=== PATIENT | female | born 1980 | race Caucasian/White ===

== ENCOUNTER 2017-05-08 18:45 | Emergency (ER) | payer OTHER ==
[~2017-05-08] VITALS: Ht 154.9 cm; Wt 54.4 kg
[~2017-05-08 18:45] MED LIST: CETI10CA PO; DCS100C PO; DOCU100C37 PO; HYDR-3720 PO; IBP800T PO; IBUP-1780 PO; LEVO88TA54 PO; OXYC-465 PO; PREN1TAB71 PO
--- OUTSIDE RECORDS SUMMARY | 2017-05-08 18:50 | XMS REPORT | Continuity of Care Document ---
Author Author [facility] Organization [facility] Address Unknown Phone Unavailable Allergies Active Description Code Type Severity Reaction Onset Reported/Identified Relationship to Patient Clinical Status Yes No Known Drug Allergies [id number] Drug Allergy Unknown N/ A 07/11/2013 Yes Sulfa (Sulfonamide Antibiotics) [id number] Drug Allergy Mild N/A 09/24/2015 Medications Problems Date Dx Coded Attending Type Code Diagnosis Diagnosed By 09/27/2015 Ot O99.810 09/27/2015 Ot Z3A.00 09/27/2015 NERY MITTAL, JEFF Adair Ot D69.6 THROMBOCYTOPENIA, UNSPECIFIED 09/27/2015 JEFF GABRIEL MD Ot O60.14X0 LABOR THIRD TRI W DELIVE 09/27/2015 JEFF GABRIEL MD, Ot O70.1 SECOND DEGREE PERINEAL LACERATION DURING 09/27/2015 JEFF GABRIEL MD, Ot O99.113 OT DIS OF BLD/BLD-FORM ORG/IMMUN MECHNS 09/27/2015 JEFF GABRIEL MD, Ot Z23 ENCOUNTER FOR IMMUNIZATION 09/27/2015 JEFF GABRIEL MD, Ot Z37.0 SINGLE LIVE 09/27/2015 JEFF GABRIEL MD, Ot Z3A.35 35 WEEKS GESTATION OF 09/28/2015 JEFF GABRIEL MD, Ot D69.6 09/28/2015 JEFF GABRIEL MD, Ot O60.14X0 09/28/2015 JEFF GABRIEL MD, Ot O70.1 09/28/2015 JEFF GABRIEL MD, Ot O99.113 09/28/2015 JEFF GBARIEL MD Ot Z23 09/28/2015 JEFF GABRIEL MD, Ot Z37.0 09/28/2015 NERY MITTAL, JEFF Adair Ot Z3A.35 09/28/2015 NERY MITTAL, JEFF Adair Ot D69.6 09/28/2015 NERY MITTAL, JEFF Adair Ot O60.14X0 09/28/2015 NERY MITTAL, JEFF Adair Ot O70.1 09/28/2015 NERY MITTAL, JEFF Adair Ot O99.113 09/28/2015 NERY MITTAL, JEFF Adair Ot Z23 09/28/2015 NERY MITTAL, JEFF Adair Ot Z37.0 09/28/2015 NERY MITTAL, JEFF Adair Ot Z3A.35 09/28/2015 NERY MITTAL, JEFF Adair Ot D69.6 09/28/2015 NERY MITTAL, JEFF Adair Ot O60.14X0 09/28/2015 NERY MITTAL, JEFF Adair Ot O70.1 09/28/2015 NERY MITTAL, JEFF Adair Ot O99.113 09/28/2015 NERY MITTAL, JEFF Adair Ot Z23 09/28/2015 NREY MITTAL, JEFF Adair Ot Z37.0 09/28/2015 NERY MITTAL, JEFF Adair Ot Z3A.35 10/03/2015 Ot O99.810 10/03/2015 Ot Z3A.00 08/09/2016 Ot O99.810 ABNORMAL GLUCOSE COMPLICATING 08/09/2016 Ot Z3A.00 WEEKS OF GESTATION OF NOT SPEC 08/09/2016 Ot O99.810 ABNORMAL GLUCOSE COMPLICATING 08/09/2016 Ot Z3A.00 WEEKS OF GESTATION OF NOT SPEC Procedures Code Description Performed By Performed On [id number] REPAIR PERINEUM MUSCLE, OPEN APPROACH 09/25/2015 [id number] DELIVERY OF PRODUCTS OF CONCEPTION, EXTE 09/25/2015 Results Encounters ACCT No. Visit Date/Time Discharge Status Pt. Type Provider Facility Loc./Unit Complaint [id number] 09/25/2015 07:54:00 2015 14:30:00 DIS Inpatient NERY MITTAL, JEFF Adair [facility] LDRP CONTRACTIONS, [id number] 07/11/2013 15:06:00 2013 11:25:00 DIS Inpatient [id number] 05/08/2017 18:46:00 ACT Emergency NA BALLARD DO [facility] [id number] 09/25/2015 10:22:00 Document Registration
[2017-05-08 19:40] LABS: BASOPHILS % (AUTO) 0 % (0-10); EOSINOPHILS # (AUTO) 0.1 10^3/uL (0.0-0.3); EOSINOPHILS % (AUTO) 1 % (0-10); LYMPHOCYTES # (AUTO) 1.2 X 10^3 (1.0-4.0); LYMPHOCYTES % (AUTO) 23 % (12-44); MEAN CORPUSCULAR HEMOGLOBIN 31 PG (25-34); MEAN CORPUSCULAR HGB CONC 36 G/DL (32-36); MEAN CORPUSCULAR VOLUME 87 FL (80-99); MEAN PLATELET VOLUME 11.2 FL (7.4-10.4); MONOCYTES # (AUTO) 0.3 X 10^3 (0.0-1.0); MONOCYTES % (AUTO) 6 % (0-12); NEUTROPHILS # (AUTO) 3.5 X 10^3 (1.8-7.8); NEUTROPHILS % (AUTO) 69 % (42-75); PLATELET COUNT 117 10^3/uL (130-400); RED BLOOD COUNT 4.54 10^6/uL (4.35-5.85); RED CELL DISTRIBUTION WIDTH 13.1 % (10.0-14.5); WHITE BLOOD COUNT 5.1 10^3/uL (4.3-11.0)
[2017-05-08 19:51] LABS: INR 1.1 (0.8-1.4)
--- NOTE | 2017-05-08 19:59 | Diagnostic Imaging Report ---
EXAM: CHEST PA/LAT (2 VIEW) INDICATION: Chest pain. COMPARISON: None. FINDINGS: Normal heart size and pulmonary vascularity. No focal pulmonary opacity, pleural effusion or pneumothorax. Osseous structures are unremarkable. Surgical clips in the upper abdomen. IMPRESSION: No acute cardiopulmonary findings. Dictated by: Dictated on workstation # [id number]
[2017-05-08 20:02] LABS: ALANINE AMINOTRANSFERASE 14 U/L (0-55); ALBUMIN 4.1 GM/DL (3.2-4.5); AMYLASE 59 U/L (25-125); ANION GAP 9 MMOL/L (5-14); ASPARTATE AMINO TRANSFERASE 15 U/L (5-34); BILIRUBIN,TOTAL 0.9 MG/DL (0.1-1.0); BLOOD UREA NITROGEN 9 MG/DL (7-18); BUN/CREATININE RATIO 9; CALCIUM 9.7 MG/DL (8.5-10.1); CARBON DIOXIDE 25 MMOL/L (21-32); CHLORIDE 105 MMOL/L (98-107); CREATININE SERUM 1.05 MG/DL (0.60-1.30); GFR ESTIMATED 59; GLUCOSE 92 MG/DL (70-105); LIPASE 19 U/L (8-78); MAGNESIUM 2.3 MG/DL (1.8-2.4); POTASSIUM 3.8 MMOL/L (3.6-5.0); SODIUM 139 MMOL/L (135-145); TOTAL PROTEIN 6.9 GM/DL (6.4-8.2)
--- NOTE | 2017-05-08 20:11 | ED Chest Pain ---
General Chief Complaint: Chest Pain Stated Complaint: CP Nursing Triage Note: INTERMITTANT SUBSTERNAL CHEST PAIN SINCE APPROX. 0800 Nursing Sepsis Screen: No Definite Risk Source: patient History of Present Illness Time seen by provider: 19:15 Initial Comments PT ARRIVES VIA POV FROM HOME PT HAS HAD MILD INTERMITTENT CHEST PAIN SINCE 0800 THIS AM, BUT NOT PRESENT ON WAKING RATES PAIN 2/10 AT THIS TIME PAIN IS IN CENTER OF CHEST, NO RADIATION OF PAIN NOTHING WORSENS OR IMPROVES PAIN HAD VERY SLIGHT, BRIEF SHORTNESS OF BREATH WHEN WALKING IN GNOSTICIST TODAY, OTHERWISE NO SHORTNESS OF BREATH HAD BRIEF FEELING OF HEART POUNDING/BEATING HARD, BUT NONE SINCE NO SWEATS NO NAUSEA/VOMITING NO SWELLING IN LEGS/ FEET OR PAIN IN CALVES. NO RECENT TRAVEL OR PROLONGED SITTING, ETC. NO FEVER, COUGH, URI SYMPTOMS. 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 NO KNOWN INJURY MOM WITH CAD AND CABG AT AGE 47 PCP: DR. WELLS Allergies and Home Medications Allergies Coded Allergies: Sulfa (Sulfonamide Antibiotics) (Verified Allergy, Mild, 09/24/15) Home Medications Cetirizine HCl 10 Mg Capsule, 10 MG PO, (Reported) Ketorolac Tromethamine 10 Mg Tablet, 10 MG PO Q6H, #15 Prescribed by: NA BALLARD on 05/08/172058 Levothyroxine Sodium 88 Mcg Tablet, 88 MCG PO DAILY, #1 Prescribed by: VILLA MUELLER on 09/26/15 0756 Review of Systems Constitutional: no symptoms reported EENTM: No Symptoms Reported Respiratory: See HPI Cardiovascular: See HPI Gastrointestinal: No Symptoms Reported Genitourinary: No Symptoms Reported, Other (LMP 3 WEEKS AGO, NO CONTROL) Musculoskeletal: no symptoms reported Skin: no symptoms reported Psychiatric/Neurological: No Symptoms Reported Endocrine: No Symptoms Reported Hematologic/Lymphatic: No Symptoms Reported Past Oxruibf-Uelelb-Witekl Hx Patient Social History Alcohol Use: Denies Use Recreational Drug Use: No Smoking Status: Never a Smoker 2nd Hand Smoke Exposure: No Recent Foreign Travel: No Contact w/Someone Who Travel: No Recent Infectious Disease Expo: No Recent Hopitalizations: No Immunizations Up To Date Tetanus Booster (TDap): Less than 5yrs Date of Influenza Vaccine: May 25, 2015 Seasonal Allergies Seasonal Allergies: Yes Surgeries History of Surgeries: Yes (WISDOM TEETH,) Surgeries: Gallbladder Respiratory History of Respiratory Disorde: No Cardiovascular History of Cardiac Disorders: No Neurological History of Neurological Disord: No Reproductive System : No Last Menstrual Period: Apr 17, 2017 Hx Reproductive Disorders: No Female Reproductive Disorders: Denies Genitourinary History of Genitourinary Disor: No Gastrointestinal History of Gastrointestinal Di: Yes Gastrointestinal Disorders: Hemorrhoids, Gall Bladder Disease Musculoskeletal History of Musculoskeletal Dis: No Endocrine History of Endocrine Disorders: Yes (elevate glucose with ) Endocrine Disorders: Hypothyroidsim HEENT History of HEENT Disorders: No Cancer History of Cancer: No Psychosocial History of Psychiatric Problem: No Integumentary History of Skin or Integumenta: No Blood Transfusions History of Blood Disorders: Yes (THROMBOCYTOPENIA) Family Medical History Family Medial History: Chest pain 03 MOTHER (2006) Congenital heart disease 03 MOTHER Family history: Arthritis 03 FATHER Family history: Cardiovascular disease 03 MOTHER Family history: Diabetes mellitus 03 MOTHER Family history: Hypertension 03 FATHER 03 MOTHER Family history: Thyroid disorder 09 SISTER (HYPOTHRODISM) Headache 03 MOTHER Heart disease 03 MOTHER Hypercholesterolemia 03 FATHER 03 MOTHER 09 BROTHER 09 SISTER Kidney disease 09 SISTER (KIDNEY STONES) No Family History of: Abdominal aortic aneurysm Billings's disease Alcoholism Aphasia Cancer Cancer of colon Cataract Congestive heart failure Cystic fibrosis Dementia Dysphagia Family history: Allergy Family history: Alzheimer's disease Family history: Asthma Family history: Breast disease Family history: Coronary thrombosis Family history: Gastrointestinal disease Family history: Glaucoma Family history: Osteoporosis Hearing loss Hereditary disease History of - anemia History of - disorder History of - respiratory disease History of drug abuse Human immunodeficiency virus (HIV) seropositivity Infertile Malignant neoplasm of lung Myocardial infarction Parkinson's disease Prostate cancer Psychotic disorder Seizure disorder Stroke Tuberculosis Visual impairment Physical Exam Vital Signs Vital Sign - Last 12Hours Capillary Refill : Less Than 3 Seconds General Appearance: No Apparent Distress, WD/WN, Thin HEENT: PERRL/EOMI Neck: Full Range of Motion, Normal Inspection, Non Tender, Supple, No Carotid Bruit, No JVD Respiratory: Normal Breath Sounds, No Accessory Muscle Use, No Respiratory Distress, Other (MID STERNAL TENDERNESS, PALPATION REPRODUCES PAIN ) Cardiovascular: Regular Rate, Rhythm, No Edema, No Gallop, No JVD, No Murmur, Normal Peripheral Pulses Gastrointestinal: Normal Bowel Sounds, No Organomegaly, No Pulsatile Mass, Non Tender, Soft Extremity: Normal Capillary Refill, Normal Inspection, Normal Range of Motion, Non Tender, No Calf Tenderness, No Pedal Edema Neurologic/Psychiatric: Alert, Oriented x3, No Motor/Sensory Deficits, Normal Mood/Affect, material processor II-XII Norm as Tested Skin: Normal Color, Warm/Dry, No Rash Progress/Results/Core Measures Results/Orders Lab Results Laboratory Tests Test 05/08/17 19:30 Range/Units White Blood Count 5.1 4.3-11.0 10^3/uL Red Blood Count 4.54 4.35-5.85 10^6/uL Hemoglobin 14.2 11.5-16.0 G/DL Hematocrit 40 35-52 % Mean Corpuscular Volume 87 80-99 FL Mean Corpuscular Hemoglobin 31 25-34 PG Mean Corpuscular Hemoglobin Concent 36 32-36 G/DL Red Cell Distribution Width 13.1 10.0-14.5 % Platelet Count 117 L 130-400 10^3/uL Mean Platelet Volume 11.2 H 7.4-10.4 FL Neutrophils (%) (Auto) 69 42-75 % Lymphocytes (%) (Auto) 23 12-44 % Monocytes (%) (Auto) 6 0-12 % Eosinophils (%) (Auto) 1 0-10 % Basophils (%) (Auto) 0 0-10 % Neutrophils # (Auto) 3.5 1.8-7.8 X 10^3 Lymphocytes # (Auto) 1.2 1.0-4.0 X 10^3 Monocytes # (Auto) 0.3 0.0-1.0 X 10^3 Eosinophils # (Auto) 0.1 0.0-0.3 10^3/uL Basophils # (Auto) 0.0 0.0-0.1 10^3/uL Prothrombin Time 14.0 12.2-14.7 SEC INR Comment 1.1 0.8-1.4 Activated Partial Thromboplast Time 30 24-35 SEC Sodium Level 139 135-145 MMOL/L Potassium Level 3.8 3.6-5.0 MMOL/L Chloride Level 105 98-107 MMOL/L Carbon Dioxide Level 25 21-32 MMOL/L Anion Gap 9 5-14 MMOL/L Blood Urea Nitrogen 9 7-18 MG/DL Creatinine 1.05 0.60-1.30 MG/DL Estimat Glomerular Filtration Rate 59 BUN/Creatinine Ratio 9 Glucose Level 92 70-105 MG/DL Calcium Level 9.7 8.5-10.1 MG/DL Magnesium Level 2.3 1.8-2.4 MG/DL Total Bilirubin 0.9 0.1-1.0 MG/DL Aspartate Amino Transf (AST/SGOT) 15 5-34 U/L Alanine Aminotransferase (ALT/SGPT) 14 0-55 U/L Alkaline Phosphatase 29 L 40-136 U/L Troponin I < 0.30 <0.30 NG/ML B-Type Natriuretic Peptide < 10.0 <100.0 PG/ML Total Protein 6.9 6.4-8.2 GM/DL Albumin 4.1 3.2-4.5 GM/DL Amylase Level 59 25-125 U/L Lipase 19 8-78 U/L Free Thyroxine 1.05 0.70-1.48 NG/DL TSH [place] Testing 5.62 H 0.35-4.94 UIU/ML Serum Test, Qualitative NEGATIVE NEGATIVE My Orders Orders - NA BALLARD DO Saline Lock/Iv-Start (05/08/17 19:13) Ekg Tracing (05/08/17 19:13) Monitor-Rhythm Ecg Trace Only (05/08/17 19:13) Amylase (05/08/17 19:22) BNP (05/08/17 19:22) Cbc With Automated Diff (05/08/17 19:22) Comprehensive Metabolic Panel (05/08/17 19:22) Hcg,Qualitative Serum (05/08/17 19:22) Lipase (05/08/17 19:22) Magnesium (05/08/17 19:22) Protime With Inr (05/08/17 19:22) Partial Thromboplastin Time (05/08/17 19:22) Troponin I (05/08/17 19:22) Chest Pa/Lat (2 View) (05/08/17 19:22) Thyroid Analyzer (05/08/17 19:23) Free T4 (Free Thyroxine) (05/08/17 19:30) Ketorolac Injection (Toradol Injection) (05/08/17 21:00) Medications Given in ED Current Medications Medications Dose Ordered Sig/Raad Route Start Time Stop Time Status Last Admin Dose Admin Ketorolac Tromethamine 30 mg ONCE ONCE IVP 05/08/17 21:00 05/08/17 21:07 DC 05/08/17 21:06 30 MG Vital Signs/I&O Vital Sign - Last 12Hours 05/08/17 05/08/17 05/08/17 05/08/17 19:15 19:15 20:24 21:14 Temp 99.5 98.7 Pulse 68 51 54 Resp 17 11 10 B/P (MAP) 120/77 109/68 Pulse Ox 99 100 98 O2 Delivery Room Air Room Air Room Air Room Air Blood Pressure Mean: 91 Progress Note : Progress Note UNEVENTFUL ER STAY ECG Initial ECG Impression Time: 19:20 Initial ECG Rate: 58 Initial ECG Rhythm: Normal Sinus Initial ECG Impression: Normal Initial ECG Comparisson: No Previous ECG Available Diagnostic Imaging Comments CXR--NO ACUTE PROCESS, PER RADIOLOGIST REPORT @ 2010 Reviewed: Reviewed by Me Departure Impression Impression: Primary Impression: Chest wall pain Additional Impression: Hypothyroidism Disposition: 01 HOME, SELF-CARE Condition: Stable Departure-Patient Inst. Referrals: MANDEEP WELLS MD (PCP/Family) Primary Care Physician Patient Instructions: Chest Pain (DC), Chest Pain That Is Not Caused by the Heart (DC), Costochondritis (DC), Hypothyroidism (Underactive Thyroid) (DC) Add. Discharge Instructions: ALTERNATE ICE AND HEAT TO SORE AREA AT 20 MINUTE INTERVALS ACTIVITIES TOLERATED DOUBLE YOUR DOSE OF L-THYROXINE FROM 88 MCG TO 176 MCG A DAY FOLLOW UP WITH YOUR DR NEXT WEEK FOR FURTHER CARE RETURN TO ER IF SYMPTOMS WORSEN All discharge instructions reviewed with patient and/or family. Voiced understanding. Scripts Ketorolac Tromethamine (Ketorolac Tromethamine) 10 Mg Tablet 10 MG PO Q6H for Pain, #15 TAB Prov: NA BALLARD DO 05/08/17 NA BALLARD DO May 08, 2017 20:11
[2017-05-08 20:21] LABS: TROPONIN I < 0.30 NG/ML (<0.30)
[2017-05-08 20:24] VITALS: BP 109/68
[2017-05-08] MEDS ORDERED: KETO10TA PO (20:59)
[2017-05-08] MEDS ORDERED: KETOROLAC 30 MG/ML VIAL IVP ONE (21:00)
[2017-05-08 21:14] VITALS: BP 101/64
== END 2017-05-08 21:10 | disposition home or self-care (01) ==
LOC: EDUNIT# 18:45 → ER 18:46
DX: R07.89 Other chest pain (principal); E03.9 Hypothyroidism, unspecified; D69.6 Thrombocytopenia, unspecified
CPT/HCPCS: 36415; 71020; 80053; 82150; 83690; 83735; 83880; 84439; 84443; 84484; 84703; 85025; 85610; 85730; 93005; 93041